=== PATIENT | female | born 1960 | race Caucasian/White ===

== ENCOUNTER 2017-07-06 21:11 | Emergency (ER) | payer OTHER ==
--- NOTE | 2017-07-06 21:39 | Emergency Department Record ---
History of Present Illness - General Chief complaint: Lower Extremity Pain Stated complaint: RT FOOT INJURY Time Seen by Provider: 07/06/17 21:34 Source: Patient Mode of Arrival: Ambulatory - History of Present Illness Initial comments: Inversion injury happened to her right foot prior to arrival when she stepped off a step. No other injury. No prior injury. MD Complaint: Extremity pain Onset/Timin -: Minutes(s) Location: Right, Ankle History of Same: Yes Radiation: None Severity scale (1-10): 8 Quality: Burning Consistency: Constant Improves with: Elevation, Immobilization, Rest Worsens with: Palpation, Weight bearing Associated Symptoms: Denies other symptoms - Related Data Home Medications Medication Instructions Recorded Confirmed Last Taken Duloxetine HCl [Duloxetine HCl] 1 cap PO DAILY 10/20/14 07/06/17 Unknown Estradiol [Estrace] 1 tab PO DAILY 10/20/14 07/06/17 Unknown Gabapentin [Gabapentin] 1 cap PO DAILY 10/20/14 07/06/17 Unknown Thyroid,Pork [[place] Thyroid] 1 tab PO DAILY 10/20/14 07/06/17 Unknown Hydroxychloroquine Sulfate 200 mg PO DAILY tab NS 11/14/15 07/06/17 Unknown [Plaquenil] Previous Rx's Medication Instructions Recorded Hydrocodone/Acetaminophen [[place] 1 each PO TID #14 tablet 07/06/17 5-325 Tablet] Allergies Allergy/AdvReac Type Severity Reaction Status Date / Time azithromycin [AZITHROMYCIN] Allergy Unknown SWELLING Verified 07/06/17 21:14 OF THE FACE erythromycin lactobionate Allergy Unknown SWELLING Verified 07/06/17 21:14 [From ERYTHROCIN] OF THE FACE Penicillins [PENICILLINS] Allergy Unknown SWELLING Verified 07/06/17 21:14 OF THE FACE Travel Screening - Travel/Exposure Within Last 30 Days Have you traveled within the last 30 days?: No - Travel/Exposure Within Last Year Have you traveled outside the [place] in the last year?: No - Additonal Travel Details Have you been exposed to anyone with a communicable illness?: No - Travel Symptoms Symptom Screening: None Review of Systems Reviewed: No additional complaints except as noted below Constitutional: Reports: As per HPI. Denies: Chills, Fever, Malaise, Night sweats, Weakness, Weight change Eyes: Reports: As per HPI. Denies: Eye discharge, Eye pain, Photophobia, Vision change ENT: Reports: As per HPI. Denies: Congestion, Dental pain, Ear pain, Epistaxis , Hearing loss, Throat pain Respiratory: Reports: As per HPI. Denies: Cough, Dyspnea, Hemoptysis, Stridor, Wheezes Cardiovascular: Reports: As per HPI. Denies: Arrhythmia, Chest pain, Dyspnea on exertion, Edema, Murmurs, Orthopnea, Palpitations, Paroxysmal nocturnal dyspnea, Rheumatic Fever, Syncope Endocrine: Reports: As per HPI. Denies: Fatigue, Heat or cold intolerance, Polydipsia, Polyuria Gastrointestinal: Reports: As per HPI. Denies: Abdominal pain, Constipation, Diarrhea, Hematemesis, Hematochezia, Melena, Nausea, Vomiting Genitourinary: Reports: As per HPI. Denies: Abnormal menses, Discharge, Dyspareunia, Dysuria, Frequency, Hematuria, Incontinence, Retention, Urgency Musculoskeletal: Reports: As per HPI. Denies: Arthralgia, Back pain, Gout, Joint swelling, Myalgia, Neck pain Skin: Reports: As per HPI. Denies: Bruising, Change in color, Change in hair/ nails, Lesions, Pruritus, Rash Neurological: Reports: As per HPI. Denies: Abnormal gait, Confusion, Headache, Numbness, Paresthesias, Seizure, Tingling, Tremors, Vertigo, Weakness Psychiatric: Reports: As per HPI. Denies: Anxiety, Auditory hallucinations, Depression, Homicidal thoughts, Suicidal thoughts, Visual hallucinations Hematological/Lymphatic: Reports: As per HPI. Denies: Anemia, Blood Clots, Easy bleeding, Easy bruising, Swollen glands Past Medical History - SOCIAL HISTORY Smoking Status: Never smoker Alcohol Use: Occasional Drug Use: None - RESPIRATORY Hx Respiratory Disorders: Yes Hx Asthma: Yes - CARDIOVASCULAR Hx Cardio Disorders: No - NEURO Hx Neuro Disorders: No Hx Neuropathy: Yes Comment:: fibromylgia - GI Hx GI Disorders: No - Hx Genitourinary Disorders: No - ENDOCRINE Hx Endocrine Disorders: Yes Hx Thyroid Disease: Yes - MUSCULOSKELETAL Hx Musculoskeletal Disorders: No - PSYCH Hx Psych Problems: No - HEMATOLOGY/ONCOLOGY Hx Hematology/Oncology Disorders: No Family Medical History Any Significant Family History?: No Physical Exam - General General Appearance: Alert, Oriented x3, Cooperative, No acute distress - Head Head exam: Normal inspection - Eye Eye exam: Normal appearance, PERRL Pupils: Normal accommodation - ENT ENT exam: Normal exam, Mucous membranes moist, Normal external ear exam, Normal orophraynx, TM's normal bilaterally Ear exam: Normal external inspection. negative: External canal tenderness Nasal Exam: Normal inspection. negative: Discharge, Sinus tenderness Mouth exam: Normal external inspection, Tongue normal Teeth exam: Normal inspection. negative: Dental caries Throat exam: Normal inspection. negative: Tonsillar erythema, Tonsillar exudate - Neck Neck exam: Normal inspection, Full ROM. negative: Tenderness - Respiratory Respiratory exam: Normal lung sounds bilaterally. negative: Respiratory distress - Cardiovascular Cardiovascular Exam: Regular rate, Normal rhythm, Normal heart sounds - GI/Abdominal GI/Abdominal exam: Soft, Normal bowel sounds. negative: Tenderness - Rectal Rectal exam: Deferred - exam: Deferred - Extremities Extremities exam: Normal inspection, Full ROM, Normal capillary refill, Tenderness (tender over 4th and 5th metatarsals on lateral foot exam. No prpoximal fib, ankle, calcaneal, or toe painor tenderness.) - Back Back exam: Reports: Normal inspection, Full ROM. Denies: Muscle spasm, Rash noted, Tenderness - Neurological Neurological exam: Alert, Normal gait, Oriented X3, Reflexes normal - Psychiatric Psychiatric exam: Normal affect, Normal mood - Skin Skin exam: Dry, Intact, Normal color, Warm Course Vital Signs 07/06/17 21:14 Temperature 98.2 F Pulse Rate 85 Respiratory 20 Rate Blood Pressure 136/81 Pulse Ox 96 - Reevaluation(s) Reevaluation #1: Off work note written for 2 days. 07/06/17 22:22 Medical Decision Making - Management Options MDM Management: Additional Work-up Planned (e.g. ADM/Transfer/OP Study) (Dr. [facility] follow up) - Data Complexity [facility] Data: X-Ray Ordered and/or Reviewed (Right foot xray: Comminuted, minimally displaced closed fracture of shaft of 5th metatarsal per radiologist.) Disposition Disposition: Discharge Clinical Impression: Foot pain, right Fracture of metatarsal of right foot, closed Qualifiers: Encounter type: initial encounter Metatarsal bone: fifth Fracture alignment: displaced Qualified Code(s): S92.351A - Displaced fracture of fifth metatarsal bone, right foot, initial encounter for closed fracture Disposition: Home, Self-Care Return To Work/School Note Provided: Yes Condition: (1) Good Instructions: Foot Sprain (ED), Foot Fracture in Adults (ED) Additional Instructions: Post op shoe, crutches. No weight bearing to foot unless totally pain free when ambulating. Ice, elevate first 48-72 hours. Tylenol or ibuprofen as directed as needed for pain. Follow up with PCP next week 3-5 days. Prescriptions: Hydrocodone/Acetaminophen [[place] 5-325 Tablet] 1 each PO TID #14 tablet Referrals: CONNIE GREGG [DOCTOR OF OSTEOPATH] - Quality - Quality Measures Quality Measures: N/A - Blood Pressure Screening Does Patient Have Any of the Following: No Blood Pressure Classification: Pre-Hypertensive BP Reading Systolic Measurement: 136 Diastolic Measurement: 81 Screening for High Blood Pressure: < Pre-Hypertensive BP, F/U Documented > [ [id number]] Pre-Hypertensive Follow-up Interventions: Follow-up with rescreen every year.
[2017-07-06] MEDS ORDERED: HYDROCODONE/APAP 5/325MG TABLET PO ONE ×2 (22:15)
--- NOTE | 2017-07-08 11:11 | RADIOLOGY REPORT ---
EXAM: RIGHT FOOT HISTORY: INJURY. TECHNIQUE: Three views of the right foot were performed. FINDINGS: There is an oblique fracture deformity of the fifth metatarsal bone. The remaining osseous structures are intact. IMPRESSION: OBLIQUE FRACTURE DEFORMITY OF THE FIFTH METATARSAL BONE. JOB NUMBER: [id number] MTDD
== END 2017-07-06 22:35 | disposition home or self-care (01) ==
LOC: ER 21:11
DX: S92.351A Displaced fracture of fifth metatarsal bone, right foot, initial encounter for closed fracture (principal); X50.0XXA Overexertion from strenuous movement or load, initial encounter
CPT/HCPCS: 99283